=== PATIENT | female | born 1995 | race African-American/Black ===

== ENCOUNTER 2018-09-29 00:32 | Emergency (ER) | payer BC ==
[~2018-09-29] VITALS: Ht 154.9 cm; Wt 86.2 kg
--- NOTE | 2018-09-29 00:45 | NUR ---
DR. HOSKINS AT BEDSIDE FOR MSE.
--- NOTE | 2018-09-29 00:51 | NUR ---
Patient discharged to home in stable conditon. Written and verbal after care instructions given. Patient verbalizes understanding of instructions. PATIENT LEFT WITH STABLE GAIT.
[2018-09-29 00:52] VITALS: BP 140/89
== END 2018-09-29 00:52 | disposition home or self-care (01) ==
LOC: ER 00:35
DX: J06.9 Acute upper respiratory infection, unspecified (principal); F17.200 Nicotine dependence, unspecified, uncomplicated; F12.10 Cannabis abuse, uncomplicated
CPT/HCPCS: A4663

== ENCOUNTER 2019-12-09 13:05 | Emergency (ER) | payer BC, MEDICAID ==
[~2019-12-09] VITALS: Ht 162.6 cm; Wt 86.2 kg
[2019-12-09] MEDS ORDERED: ACETAMINOPHEN ES 500 MG TABLET ONE (13:29)
[2019-12-09] MEDS ORDERED: ACETAMINOPHEN ES 500 MG TABLET PO ONE (13:30)
--- NOTE | 2019-12-09 13:34 | NUR ---
Patient discharged to home in stable condition. & brisk steady gait Written and verbal after care instructions given to patient. Patient verbalized understanding and compliance of instructions. "Excuse for work/school/PE" note was provided by
== END 2019-12-09 13:36 | disposition home or self-care (01) ==
LOC: ER 13:05
DX: B34.9 Viral infection, unspecified (principal); F17.200 Nicotine dependence, unspecified, uncomplicated
CPT/HCPCS: A4663; A9150

== ENCOUNTER 2020-02-02 23:19 | Emergency (ER) | payer MEDICAID ==
[~2020-02-02] VITALS: Ht 162.6 cm; Wt 88.5 kg
--- NOTE | 2020-02-03 00:11 | NUR ---
Dr. Gonsalves at bedside for MSE.
[2020-02-03] MEDS ORDERED: LORAZEPAM 0.5 MG TABLET PO ONE (00:15)
[2020-02-03] MEDS ORDERED: LORAZEPAM 0.5 MG TABLET ONE (00:17)
--- NOTE | 2020-02-03 00:41 | NUR ---
Patient discharged to home in stable condition. Written and verbal after care instructions given. Patient verbalizes understanding of instructions. Stressed follow up or return to ER for worsening s/s.Pt ambulated out of the ER with steady gait. All belongings with pt.
[2020-02-03 00:46] VITALS: BP 130/60
== END 2020-02-03 00:41 | disposition home or self-care (01) ==
LOC: ER 23:24
DX: F41.9 Anxiety disorder, unspecified (principal); Z86.79 Personal history of other diseases of the circulatory system
CPT/HCPCS: 93005

== ENCOUNTER 2020-12-03 20:21 | Emergency (ER) | payer BC, MEDICAID ==
[~2020-12-03] VITALS: Ht 165.1 cm; Wt 83.9 kg
--- NOTE | 2020-12-03 20:41 | NUR ---
Female reduction furnace operator, Gerda RUIZ accompanied female patient for Dr. Fine.
[2020-12-03] MEDS ORDERED: LIDOCAINE VISCUS 2% 15 ML UDC ONE (20:47)
--- NOTE | 2020-12-03 20:55 | NUR ---
Lidocaine Viscous given to ERMD Dr. Leoncio Fine prior to discharge.
--- NOTE | 2020-12-03 20:57 | NUR ---
Patient discharged to home in stable condition. Written and verbal after care instructions given. Patient verbalizes understanding of instructions. Stressed follow up or return to ER for worsening s/s. Patient ambulated with steady gait. All belongings returned to patient prior to departure.
[2020-12-03 21:04] VITALS: BP 151/105
[2020-12-03] MEDS ORDERED: LIDOCAINE VISCUS 2% 15 ML UDC MM ONE (21:15)
== END 2020-12-03 21:05 | disposition home or self-care (01) ==
LOC: ER 20:22
DX: S31.41XA Laceration without foreign body of vagina and vulva, initial encounter (principal); X58.XXXA Exposure to other specified factors, initial encounter; Y93.89 Activity, other specified; Y92.89 Other specified places as the place of occurrence of the external cause; F17.210 Nicotine dependence, cigarettes, uncomplicated; F41.9 Anxiety disorder, unspecified
CPT/HCPCS: A4663